=== PATIENT | female | born 1970 | race Caucasian/White ===

== ENCOUNTER 2022-09-24 20:43 | Emergency (ER) | payer OTHER ==
[~2022-09-24] VITALS: Ht 170.2 cm; Wt 106.1 kg
[2022-09-24 21:29] VITALS: BP 123/72; PULSE 95; RESP 20; TEMP 97.5; O2SAT 97
[2022-09-25] MEDS ORDERED: CEPH-588 PO (01:43)
[2022-09-25] MEDS ORDERED: NAPR-54 PO (01:43)
[2022-09-25 02:10] VITALS: BP 123/72; PULSE 94; RESP 20; TEMP 97.1; O2SAT 97
== END 2022-09-25 02:10 | disposition home or self-care (01) ==
LOC: MED 20:43
DX: M76.61 Achilles tendinitis, right leg (principal); L03.115 Cellulitis of right lower limb; Z79.899 Other long term (current) drug therapy
CPT/HCPCS: 29515; 73650; 99284

== ENCOUNTER 2022-11-07 11:18 | Emergency (ER) | payer OTHER ==
[~2022-11-07] VITALS: Ht 172.7 cm; Wt 107.0 kg
[~2022-11-07 11:18] MED LIST: CEPH-588 PO; NAPR-54 PO
[2022-11-07 11:33] VITALS: BP 117/83; PULSE 82; RESP 18; TEMP 98.5; O2SAT 100
[2022-11-07] MEDS ORDERED: KETOROLAC 30 MG/ML VIAL IM ONE (12:15)
[2022-11-07 12:16] VITALS: O2SAT 100
[2022-11-07 13:50] VITALS: BP 119/83; PULSE 83; RESP 18; TEMP 98.3; O2SAT 99
== END 2022-11-07 13:10 | disposition home or self-care (01) ==
LOC: MED 11:18
DX: S63.502A Unspecified sprain of left wrist, initial encounter (principal); F32.9 Major depressive disorder, single episode, unspecified; Z79.899 Other long term (current) drug therapy; X50.1XXA Overexertion from prolonged static or awkward postures, initial encounter; Y93.89 Activity, other specified; Y92.89 Other specified places as the place of occurrence of the external cause; Y99.8 Other external cause status
CPT/HCPCS: 73110; 96372; 99283; J1885